=== PATIENT | male | born 1990 | race American Indian/Alaskan Native ===

== ENCOUNTER 2019-12-17 18:39 | Emergency (ER) | payer MEDICARE ==
[2019-12-17] MEDS ORDERED: HALOPERIDOL LACTATE 5 MG/1 ML INJ IM ONE (19:06)
[2019-12-17] MEDS ORDERED: LORazepam 2 MG/ML VIAL IM ONE (19:15)
[2019-12-17] MEDS ORDERED: diphenhydrAMINE 50 MG/ML VIAL IM PRN (19:30)
[2019-12-17] MEDS ORDERED: LORazepam 2 MG/ML VIAL IM PRN (19:30)
[2019-12-17] MEDS ORDERED: HALOPERIDOL LACTATE 5 MG/1 ML INJ IM PRN (19:30)
--- NOTE | 2019-12-17 19:35 | Emergency Department Report ---
HPI - General Chief Complaint: Psych Time Seen by Provider: 12/17/19 19:21 - HPI HPI: Room 15 The patient is an adult male present with a chief complaint of bizarre behavior. Patient was brought in by EMS after he was reported to have been walking naked down old [employer]. The patient was yelling out and speaking in third person. Patient was very belligerent upon arrival to the ED. Patient was administered Ativan 2 mg IM and Haldol 5 mg IM upon arrival and is now calm. Patient does not answer verbally but denies suicidal or homicidal ideation by shaking his head. Patient denies auditory hallucinations ED Past Medical Hx - Past Medical History Previous Medical History?: No - Surgical History Past Surgical History?: No - Family History Family history: no significant - Social History Smoking Status: Unknown if ever smoked Substance Use Type: None (Unknown) ED Review of Systems ROS: Stated complaint: EVALUATION Other details as noted in HPI Constitutional: no symptoms reported Respiratory: no symptoms reported Endocrine: no symptoms reported Psychiatric: denies: auditory hallucinations, homicidal thoughts, suicidal thoughts Physical Exam - Physical Exam Vital Signs: Vital Signs 12/17/19 18:56 Pulse Rate 88 Respiratory 18 Rate Blood Pressure 120/80 O2 Sat by Pulse 98 Oximetry Physical Exam: GENERAL: The patient is well-developed well-nourished male lying on mat not appearing to be in acute distress. [] HEENT: Normocephalic. Atraumatic. Extraocular motions are intact. Patient has moist mucous membranes. NECK: Supple. Trachea midline CHEST/LUNGS: Clear to auscultation. There is no respiratory distress noted. HEART/CARDIOVASCULAR: Regular. There is no tachycardia. There is no gallop rub or murmur. ABDOMEN: Abdomen is soft, nontender. Patient has normal bowel sounds. There is no abdominal distention. SKIN: There is no rash. There is no edema. There is no diaphoresis. NEURO: The patient is awake and alert. The patient is cooperative but does not answer questions verbally. The patient has normal speech (when patient was yelling out upon arrival) MUSCULOSKELETAL: There is no evidence of acute injury. ED Course Vital Signs 12/17/19 18:56 Pulse Rate 88 Respiratory 18 Rate Blood Pressure 120/80 O2 Sat by Pulse 98 Oximetry ED Medical Decision Making - Lab Data Result diagrams: 12/17/19 21:05 12/17/19 21:05 - Differential Diagnosis Psychosis NOS, schizophrenia, substance abuse Critical care attestation.: If time is entered above; I have spent that time in minutes in the direct care of this critically ill patient, excluding procedure time. ED Disposition Clinical Impression: Schizophrenia, acute Disposition: [id number]/TX-[id number] PSY HOSP/PSY UNIT Is pt being admited?: No Does the pt Need Aspirin: No Condition: Stable Referrals: TANNER ROLAND MD [Primary Care Provider] - 3-5 Days
[2019-12-17 21:19] LABS: Basophils % (Auto) 0.5 % (0.0-1.8); Eosinophils % (Auto) 0.4 % (0.0-4.3); Hematocrit 41.2 % (35.5-45.6); Lymphocytes # (Auto) 1.9 K/mm3 (1.2-5.4); Lymphocytes % (Auto) 20.3 % (13.4-35.0); Mean Corpuscular HGB Conc 34 % (32-34); Mean Corpuscular Volume 92 fl (84-94); Monocytes # (Auto) 1.3 K/mm3 (0.0-0.8); Monocytes % (Auto) 14.3 % (0.0-7.3); Platelet Count 170 K/mm3 (140-440); Red Blood Count 4.48 M/mm3 (3.65-5.03); Red Cell Distribution Width 14.3 % (13.2-15.2)
[2019-12-17 21:34] LABS: BUN/Creatinine Ratio 13; Blood Urea Nitrogen 12 mg/dL (9-20); Calcium 9.4 mg/dL (8.4-10.2); Hemolysis Index 17
--- NOTE | 2019-12-18 12:20 | Consultation ---
History of Present Illness - Reason for Consult Consult date: 12/18/19 Reason for consult: MHE Requesting physician: MECHE NICHOLS - History of Present Psychiatric Illness Per ED Provider: The patient is an adult male present with a chief complaint of bizarre behavior. Patient was brought in by EMS after he was reported to have b een walking naked [place] [address] [facility]. The patient was yelling out and speaking in third person. Patient was very belligerent upon arrival to the ED. Patient was administered Ativan 2 mg IM and Haldol 5 mg IM upon arrival and is now calm. Patient does not answer verbally but denies suicidal or homicidal ideation by shaking his head. Patient denies auditory hallucinations PSYCH HPI Patient is a 29 year old single, unemployed Male who curratrium healthty resides with brother with past psychiatric history of Schizophrenia who presented to the ED by EMS for wandering naked. Patient reports his real name as Valentino Boone, says he is 29 and of 1990. He reports hearing voices of facundo within him and in his jehovah's witness heaven, He admits to walking nakedly, says he was on his way to [place] doing the [employer] walk. He endorses hearing voices of the father telling him to lie to me, that he had made a prayer this morning telling father he would lie to me. Patient says he spiritually sees a ring in hi sleft hand, and he is to an una. He reports living with brother PAST PSYCHIATRIC HISTORY Diagnoses: Schizophrenia Suicide attempts or Self-harm behavior: unknown Prior psychiatric hospitalizations: Yes Substance Abuse history:unknown Previous psychiatric medications tried: Yes Outpatient treatment: unknown PAST MEDICAL HISTORY: Family Psychiatric History: None reported or documented SOCIAL HISTORY Marital Status: SIngle Living Arrangements: with brother Employment Status: unemployed Access to guns/weapons: unknown Education: unknown History of Abuse: unknown Legal History:unknown REVIEW OF SYSTEMS ROS cannot be reliably obtained from the patient due to his confusion MENTAL STATUS EXAMINATION General Appearance and Behavior: Age appropriate, poorgood hygiene, wearing lori ropriate clothes, lying in bed, poor eye contact, cooperative with questioning. Cooperation:, Isolative, Hostile and Guarded Psychomotor Behavior: psychomotor retardation Mood: good Affect and affective range: flat Thought Process: Fragmented and Loose associations Thought Content: Obsessions, Flight of ideas, Illogical, Grandiose, Hallucinations including auditory, Speech: Normal volume, Regular rate and rhythm Intellectual Functioning: Fair Suicidal Ideation: unknown Homicidal Ideation: unknown Impulse Control: Impaired Insight and Judgment: Impaired Memory: impaired Attention: Divided attention impaired Orientation: Alert, oriented Assessment and Plan - Psychiatric problem (1) Schizophrenia, acute Current Visit: Yes Status: Acute Treatment Plan MEDICATIONS: Meds started Risks, benefits and alternatives of medications discussed with the patient, questions answered and consent obtained from patient. PSYCHOTHERAPY: Supportive psychotherapy provided MEDICAL: Per primary team DELIRIUM PRECAUTIONS: Please re-orient patient frequently, keep lights on during the day, and minimize benzodiazepines and opiates as these medications could worsen patient's confusion. 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 Please contact with any questions and/or concerns. Medications and Allergies Allergies Allergy/AdvReac Type Severity Reaction Status Date / Time Unable to Assess Allergy Unverified 12/17/19 19:01 Active Meds: Active Medications Diphenhydramine HCl (Benadryl) 50 mg IM Q6H PRN PRN Reason: Agitation Haloperidol Lactate (Haldol) 10 mg IM Q8H PRN PRN Reason: Agitation Lorazepam (Ativan) 2 mg IM Q8H PRN PRN Reason: Agitation Mental Status Exam - Vital signs Last Vital Signs Temp 97.8 F 12/18/19 09:04 Pulse 90 12/18/19 09:04 Resp 18 12/18/19 09:04 BP 117/78 12/18/19 09:04 Pulse Ox 97 12/18/19 09:04 Results Result Diagrams: 12/17/19 21:05 12/17/19 21:05 Abnormal lab results 12/17/19 12/17/19 12/17/19 Range/Units 21:05 21:05 21:05 [place] % (Auto) 14.3 H (0.0-7.3) % [place] # 1.3 H (0.0-0.8) K/mm3 Salicylates < 0.3 L (2.8-20.0) mg/dL Acetaminophen 5.0 L (10.0-30.0) ug/mL All other labs normal. Assessment and Plan - Psychiatric problem (1) Schizophrenia, acute Current Visit: Yes Status: Acute
[2019-12-18] MEDS ORDERED: HALOPERIDOL 2 MG TAB PO SCH (13:00)
[2019-12-18 13:13] LABS: Amphetamine Screen,Urine Negative; Bacteria,Urine 1+ /HPF (Negative); Benzodiazepines Screen,Urine Negative; Bilirubin,Urine NEG (Negative); Blood,Urine NEG (Negative); Cannabinoid Screen,Urine Negative; Cocaine Screen,Urine Negative; Color,Urine Yellow (Yellow); Methadone Screen,Urine Negative; Mucus,Urine 2+ /HPF; Opiate Screen,Urine Negative; Protein,Urine <15 mg/dL mg/dL (Negative); Urobilinogen,Urine < 2.0 mg/dL (<2.0)
[2019-12-18 20:51] VITALS: BP 117/56
== END 2019-12-18 20:44 ==
LOC: ED 18:39 → EDBD 18:39 → ED 12-18 20:44
DX: F25.9 Schizoaffective disorder, unspecified (principal)
CPT/HCPCS: 36415; 80048; 80307; 81001; 85025; 96372; 99285; J1630; J2060; 80320; G0480

== ENCOUNTER 2021-08-07 03:10 | Emergency (ER) | payer MEDICARE ==
[2021-08-07 04:32] LABS: Basophils % (Auto) 0.6 % (0.0-1.8); Eosinophils # (Auto) 0.1 K/mm3 (0.0-0.4); Eosinophils % (Auto) 1.3 % (0.0-4.3); Hematocrit 41.8 % (35.5-45.6); Lymphocytes # (Auto) 2.3 K/mm3 (1.2-5.4); Lymphocytes % (Auto) 42.8 % (13.4-35.0); Mean Corpuscular HGB Conc 34 % (32-34); Mean Corpuscular Volume 90 fl (84-94); Monocytes # (Auto) 0.5 K/mm3 (0.0-0.8); Monocytes % (Auto) 8.6 % (0.0-7.3); Platelet Count 180 K/mm3 (140-440); Red Blood Count 4.63 M/mm3 (3.65-5.03)
[2021-08-07 04:49] LABS: BUN/Creatinine Ratio 5; Blood Urea Nitrogen 5 mg/dL (9-20); Calcium 9.1 mg/dL (8.4-10.2); Hemolysis Index 6
[2021-08-07 05:53] LABS: Bilirubin,Urine NEG (Negative); Blood,Urine NEG (Negative); Color,Urine Straw (Yellow); Mucus,Urine FEW /HPF; Protein,Urine <15 mg/dL mg/dL (Negative); RBC,Urine < 1.0 /HPF (0.0-6.0); Urobilinogen,Urine < 2.0 mg/dL (<2.0)
[2021-08-07 06:01] LABS: Amphetamine Screen,Urine PRESUMPTIVE NEGATIVE; Benzodiazepines Screen,Urine PRESUMPTIVE NEGATIVE; Cannabinoid Screen,Urine PRESUMPTIVE NEGATIVE; Cocaine Screen,Urine PRESUMPTIVE NEGATIVE; Methadone Screen,Urine PRESUMPTIVE NEGATIVE; Opiate Screen,Urine PRESUMPTIVE NEGATIVE
--- NOTE | 2021-08-07 10:40 | Emergency Department Report ---
ED General Adult HPI - General Chief complaint: Psych Stated complaint: MH EVAL/HALUCINATIONS Time Seen by Provider: 08/07/21 07:38 Source: patient, RN notes reviewed Mode of arrival: Stretcher Limitations: No Limitations - History of Present Illness Initial comments: This is a pleasant and cooperative 30-year-old gentleman, presenting to the ER today with a complaint of painless hallucinations. He is not homicidal or suicidal, denies physical pain, overdose, access to guns or firearms, he denies cough and urinary symptoms. He follows at [facility], and is typically maintained on haloperidol. -: Gradual Consistency: constant Improves with: none Worsens with: none Associated Symptoms: denies other symptoms - Related Data Previous Rx's Medication Instructions Recorded Last Taken Type haloperidoL [Haldol] 5 mg PO BID 30 Days #60 08/07/21 Unknown Rx Allergies Allergy/AdvReac Type Severity Reaction Status Date / Time No Known Allergies Allergy Unverified 12/18/19 13:19 ED Review of Systems ROS: Stated complaint: MH EVAL/HALUCINATIONS Other details as noted in HPI Comment: All other systems reviewed and negative Psychiatric: auditory hallucinations. denies: homicidal thoughts, suicidal thoughts ED Past Medical Hx - Past Medical History Previous Medical History?: Yes Hx Seizures: Yes (as a child; more than 15 years ago) Hx Psychiatric Treatment: Yes (SCHIZOPHRENIA) - Surgical History Past Surgical History?: No - Social History Smoking Status: Never Smoker Substance Use Type: None - Medications Home Medications: Home Medications Medication Instructions Recorded Confirmed Last Taken Type haloperidoL [Haldol] 5 mg PO BID 30 Days #60 08/07/21 Unknown Rx ED Physical Exam - General Limitations: No Limitations General appearance: alert, in no apparent distress - Head Head exam: Present: atraumatic, normocephalic - Eye Eye exam: Present: normal appearance, EOMI. Absent: nystagmus - ENT ENT exam: Present: normal exam, normal orophraynx, mucous membranes moist, normal external ear exam - Neck Neck exam: Present: normal inspection, full ROM. Absent: tenderness, meningismus - Respiratory Respiratory exam: Present: normal lung sounds bilaterally. Absent: respiratory distress, wheezes, rales, rhonchi, stridor, decreased breath sounds - Cardiovascular Cardiovascular Exam: Present: regular rate, normal rhythm, normal heart sounds. Absent: bradycardia, tachycardia, irregular rhythm, systolic murmur, diastolic murmur, rubs, gallop - GI/Abdominal GI/Abdominal exam: Present: soft. Absent: distended, tenderness, guarding, rebound, rigid, pulsatile mass - Rectal Rectal exam: Present: deferred - Extremities Exam Extremities exam: Present: normal inspection, full ROM, other (2+ pulses noted in the bilateral upper and lower extremities. There is no palpable cord. negative Homans sign. Muscular compartments are soft. The pelvis is stable.). Absent: pedal edema, calf tenderness - Back Exam Back exam: Present: normal inspection, full ROM. Absent: tenderness, CVA ten derness (R), CVA tenderness (L), paraspinal tenderness, vertebral tenderness - Neurological Exam Neurological exam: Present: alert, oriented X3, normal gait, other (No facial droop. Tongue midline. Extraocular movements intact bilaterally. Facial sensation intact to light touch in V1, V2, V3 distribution bilaterally. 5 and a 5 strength in 4 extremities. Sensation intact to light touch in 4 extremities.). Absent: motor sensory deficit - Psychiatric Psychiatric exam: Present: flat affect. Absent: homicidal ideation, suicidal ideation - Skin Skin exam: Present: warm, dry, intact, normal color. Absent: rash ED Course Vital Signs 08/07/21 08/07/21 08/07/21 03:34 03:43 12:18 Temperature 98 F 98.2 F Pulse Rate 60 68 Respiratory 18 16 Rate Blood Pressure 122/90 Blood Pressure 118/70 [Right] O2 Sat by Pulse 100 100 99 Oximetry ED Medical Decision Making - Lab Data Result diagrams: 08/07/21 04:11 08/07/21 04:11 Vital Signs 08/07/21 08/07/21 03:34 03:43 Temperature 98 F Pulse Rate 60 Respiratory 18 Rate Blood Pressure 122/90 O2 Sat by Pulse 100 100 Oximetry Lab Results 08/07/21 08/07/21 08/07/21 Range/Units 04:11 04:11 04:11 WBC (4.5-11.0) K/mm3 RBC (3.65-5.03) M/mm3 Hgb (11.8-15.2) gm/dl Hct (35.5-45.6) % MCV (84-94) fl MCH (28-32) pg MCHC (32-34) % RDW (13.2-15.2) % Plt Count (140-440) K/mm3 Lymph % (Auto) (13.4-35.0) % [place] % (Auto) (0.0-7.3) % Eos % (Auto) (0.0-4.3) % Baso % (Auto) (0.0-1.8) % Lymph # (Auto) (1.2-5.4) K/mm3 [place] # (Auto) (0.0-0.8) K/mm3 Eos # (Auto) (0.0-0.4) K/mm3 Baso # (Auto) (0.0-0.1) K/mm3 Seg Neutrophils % (40.0-70.0) % Seg Neutrophils # (1.8-7.7) K/mm3 Sodium 140 (137-145) mmol/L Potassium 4.2 (3.6-5.0) mmol/L Chloride 104.6 (98-107) mmol/L Carbon Dioxide 28 (22-30) mmol/L Anion Gap 12 mmol/L BUN 5 L (9-20) mg/dL Creatinine 1.0 (0.8-1.3) mg/dL Estimated GFR > 60 ml/min BUN/Creatinine Ratio 5 % Glucose 91 (75-100) mg/dL Calcium 9.1 (8.4-10.2) mg/dL Urine Color (Yellow) Urine Turbidity (Clear) Urine pH (5.0-7.0) Ur Specific [place] (1.003-1.030) Urine Protein (Negative) mg/dL Urine Glucose (UA) (Negative) mg/dL Urine Ketones (Negative) mg/dL Urine Blood (Negative) Urine Nitrite (Negative) Urine Bilirubin (Negative) Urine Urobilinogen (<2.0) mg/dL Ur Leukocyte Esterase (Negative) Urine WBC (Auto) (0.0-6.0) /HPF Urine RBC (Auto) (0.0-6.0) /HPF Urine Mucus /HPF Salicylates < 0.3 L (2.8-20.0) mg/dL Urine Opiates Screen Urine Methadone Screen Acetaminophen 5.0 L (10.0-30.0) ug/mL Ur Barbiturates Screen Ur Phencyclidine Scrn Ur Amphetamines Screen U Benzodiazepines Scrn Urine Cocaine Screen U Marijuana (THC) Screen Drugs of Abuse Note Plasma/Serum Alcohol (0-0.07) % 08/07/21 08/07/21 08/07/21 Range/Units 04:11 04:11 04:49 WBC 5.4 (4.5-11.0) K/mm3 RBC 4.63 (3.65-5.03) M/mm3 Hgb 14.0 (11.8-15.2) gm/dl Hct 41.8 (35.5-45.6) % MCV 90 (84-94) fl MCH 30 (28-32) pg MCHC 34 (32-34) % RDW 14.0 (13.2-15.2) % Plt Count 180 (140-440) K/mm3 Lymph % (Auto) 42.8 H (13.4-35.0) % [place] % (Auto) 8.6 H (0.0-7.3) % Eos % (Auto) 1.3 (0.0-4.3) % Baso % (Auto) 0.6 (0.0-1.8) % Lymph # (Auto) 2.3 (1.2-5.4) K/mm3 [place] # (Auto) 0.5 (0.0-0.8) K/mm3 Eos # (Auto) 0.1 (0.0-0.4) K/mm3 Baso # (Auto) 0.0 (0.0-0.1) K/mm3 Seg Neutrophils % 46.7 (40.0-70.0) % Seg Neutrophils # 2.5 (1.8-7.7) K/mm3 Sodium (137-145) mmol/L Potassium (3.6-5.0) mmol/L Chloride (98-107) mmol/L Carbon Dioxide (22-30) mmol/L Anion Gap mmol/L BUN (9-20) mg/dL Creatinine (0.8-1.3) mg/dL Estimated GFR ml/min BUN/Creatinine Ratio % Glucose (75-100) mg/dL Calcium (8.4-10.2) mg/dL Urine Color Straw (Yellow) Urine Turbidity Clear (Clear) Urine pH 6.0 (5.0-7.0) Ur Specific [place] 1.008 (1.003-1.030) Urine Protein <15 mg/dl (Negative) mg/dL Urine Glucose (UA) Neg (Negative) mg/dL Urine Ketones Neg (Negative) mg/dL Urine Blood Neg (Negative) Urine Nitrite Neg (Negative) Urine Bilirubin Neg (Negative) Urine Urobilinogen < 2.0 (<2.0) mg/dL Ur Leukocyte Esterase Neg (Negative) Urine WBC (Auto) 1.0 (0.0-6.0) /HPF Urine RBC (Auto) < 1.0 (0.0-6.0) /HPF Urine Mucus Few /HPF Salicylates (2.8-20.0) mg/dL Urine Opiates Screen Urine Methadone Screen Acetaminophen (10.0-30.0) ug/mL Ur Barbiturates Screen Ur Phencyclidine Scrn Ur Amphetamines Screen U Benzodiazepines Scrn Urine Cocaine Screen U Marijuana (THC) Screen Drugs of Abuse Note Plasma/Serum Alcohol < 0.01 (0-0.07) % 08/07/21 Range/Units 04:49 WBC (4.5-11.0) K/mm3 RBC (3.65-5.03) M/mm3 Hgb (11.8-15.2) gm/dl Hct (35.5-45.6) % MCV (84-94) fl MCH (28-32) pg MCHC (32-34) % RDW (13.2-15.2) % Plt Count (140-440) K/mm3 Lymph % (Auto) (13.4-35.0) % [place] % (Auto) (0.0-7.3) % Eos % (Auto) (0.0-4.3) % Baso % (Auto) (0.0-1.8) % Lymph # (Auto) (1.2-5.4) K/mm3 [place] # (Auto) (0.0-0.8) K/mm3 Eos # (Auto) (0.0-0.4) K/mm3 Baso # (Auto) (0.0-0.1) K/mm3 Seg Neutrophils % (40.0-70.0) % Seg Neutrophils # (1.8-7.7) K/mm3 Sodium (137-145) mmol/L Potassium (3.6-5.0) mmol/L Chloride (98-107) mmol/L Carbon Dioxide (22-30) mmol/L Anion Gap mmol/L BUN (9-20) mg/dL Creatinine (0.8-1.3) mg/dL Estimated GFR ml/min BUN/Creatinine Ratio % Glucose (75-100) mg/dL Calcium (8.4-10.2) mg/dL Urine Color (Yellow) Urine Turbidity (Clear) Urine pH (5.0-7.0) Ur Specific [place] (1.003-1.030) Urine Protein (Negative) mg/dL Urine Glucose (UA) (Negative) mg/dL Urine Ketones (Negative) mg/dL Urine Blood (Negative) Urine Nitrite (Negative) Urine Bilirubin (Negative) Urine Urobilinogen (<2.0) mg/dL Ur Leukocyte Esterase (Negative) Urine WBC (Auto) (0.0-6.0) /HPF Urine RBC (Auto) (0.0-6.0) /HPF Urine Mucus /HPF Salicylates (2.8-20.0) mg/dL Urine Opiates Screen Presumptive negative Urine Methadone Screen Presumptive negative Acetaminophen (10.0-30.0) ug/mL Ur Barbiturates Screen Presumptive negative Ur Phencyclidine Scrn Presumptive negative Ur Amphetamines Screen Presumptive negative U Benzodiazepines Scrn Presumptive negative Urine Cocaine Screen Presumptive negative U Marijuana (THC) Screen Presumptive negative Drugs of Abuse Note Disclamer Plasma/Serum Alcohol (0-0.07) % - Medical Decision Making Differential diagnosis, including but not limited to: Schizophrenia, medical screening exam, behavioral health screening examination Assessment and plan: 30-year-old gentleman, who is awake, alert, oriented, cooperative, not aggressive, not homicidal, not suicidal, exhibiting decision- making capacity, not disorganized to the point where he is not able to care for himself, presenting with essentially painless hallucinations. In my opinion does not meet criteria for 1013 hold or involuntary confinement. Physical exam is benign and unremarkable. Laboratory studies are essentially nonactionable. Seen in conjunction with psychiatric nurse practitioner, awaiting their formal recommendations. Anticipate discharge with outpatient follow-up Critical care attestation.: If time is entered above; I have spent that time in minutes in the direct care of this critically ill patient, excluding procedure time. ED Disposition Clinical Impression: Schizophrenia, Encounter for behavioral health screening, Encounter for medical screening examination Disposition: HOME / SELF CARE / HOMELESS Is pt being admited?: No Does the pt Need Aspirin: No Condition: Good Instructions: Schizophrenia Additional Instructions: Please continue your current outpatient medications. Please avoid consumption of alcohol, tobacco and smoke products. Please follow-up with an outpatient primary care doctor within the next month. Please follow-up with your outpatient psychiatrist within the next week. Please return to the emergency room right away with new pain, worsened pain, migration of pain, projectile vomiting, change in mental status, confusion, inability tolerate liquid feeds, new, worsened or different symptoms not present on the initial emergency room evaluation Please follow-up with outpatient resources that have been provided to the patient Prescriptions: haloperidoL [Haldol] 5 mg PO BID 30 Days #60 Referrals: MILTON SUAREZ MD [Primary Care Provider] - 3-5 Days [facility] [Outside] - 3-5 Days [facility] [Outside] - 3-5 Days
--- NOTE | 2021-08-07 10:56 | Consultation ---
History of Present Illness - Reason for Consult Consult date: 08/07/21 Reason for consult: mental health evaluation - History of Present Psychiatric Illness The patient is a 30 year old male with history of schizophrenia. In my encounter with the patient, he is calm. The patient states " The holy spirit said to call 911 because I have trauma." The patient reports getting his monthly Haldol Dec form [facility] outpatient stating "it's not 28 days yet." He reports an upcoming appointment on 08/15 at [facility] out-[facility]. The patient denies any current suicidal/homicidal ideation, admits to having auditory hallucinations. PAST PSYCHIATRIC HISTORY: Diagnose:Schizophrenia Suicide attempts or Self-harm behavior: Yes Prior psychiatric hospitalizations: Yes Substance Abuse history: Denies Previous psychiatric medications tried: Haldol dec, Cogentin Outpatient treatment: [facility] PAST MEDICAL HISTORY: unknown Family Psychiatric History: None reported or documented SOCIAL HISTORY Marital Status: Single Living Arrangements: Lives with brother Employment Status: Unknown Access to guns/weapons: Denies Education:some college History of Abuse: Denies Legal History: Denies REVIEW OF SYSTEMS Constitutional: Negative for weight loss ENT: Negative for stridor Respiratory: Negative for cough or hemoptysis All other systems reviewed and are negative MENTAL STATUS EXAMINATION General Appearance and Behavior: Age appropriate, good hygiene, wearing appropriate clothes. cooperative Cooperation: Cooperative Psychomotor Behavior: Psychomotor normal Mood:OK Affect and affective range: Congruent Thought Process: Goal directed Thought Content: Reality oriented Speech: Normal Suicidal Ideation: Denies Homicidal Ideation: Denies Hallucinations: Yes- auditory Delusions: None elicited Impulse Control: Normal Insight and Judgment: Limited insight and judgment Memory: Limited Attention: attentive Orientation: a/o x 3 Assessment (1) Schizophrenia Treatment Plan DC 1013 Haldol 5mg po BID Sitter: per primary Medical: per primary Disposition: Do not recommend acute psychiatric inpatient treatment. [facility] will provide patient with psychiatric outpatient resources. Will sign off. Thanks Case staffed with Dr. Parson Medications and Allergies Medications and Allergies Allergies Allergy/AdvReac Type Severity Reaction Status Date / Time No Known Allergies Allergy Unverified 12/18/19 13:19 Home Medications Medication Instructions Recorded Confirmed Last Taken Type haloperidoL [Haldol] 5 mg PO BID 30 Days #60 08/07/21 Unknown Rx Mental Status Exam - Vital signs Last Vital Signs Temp 98 F 08/07/21 03:34 Pulse 60 08/07/21 03:34 Resp 18 08/07/21 03:34 BP 122/90 08/07/21 03:34 Pulse Ox 100 08/07/21 03:43 Results Result Diagrams: 08/07/21 04:11 08/07/21 04:11 Abnormal lab results 08/07/21 08/07/21 08/07/21 Range/Units 04:11 04:11 04:11 Lymph % (Auto) (13.4-35.0) % [place] % (Auto) (0.0-7.3) % BUN 5 L (9-20) mg/dL Salicylates < 0.3 L (2.8-20.0) mg/dL Acetaminophen 5.0 L (10.0-30.0) ug/mL 08/07/21 Range/Units 04:11 Lymph % (Auto) 42.8 H (13.4-35.0) % [place] % (Auto) 8.6 H (0.0-7.3) % BUN (9-20) mg/dL Salicylates (2.8-20.0) mg/dL Acetaminophen (10.0-30.0) ug/mL All other labs normal.
--- NOTE | 2021-08-07 11:37 | Event Note ---
Date: 08/07/21 vss, nodistress , no events overnight medically cleared assesssed by [facility] awaiting discharge
[2021-08-07 12:19] VITALS: BP 118/70
== END 2021-08-07 12:19 | disposition home or self-care (01) ==
LOC: ED 03:10
DX: F20.9 Schizophrenia, unspecified (principal); Z13.30 Encounter for screening examination for mental health and behavioral disorders, unspecified; Z79.899 Other long term (current) drug therapy
CPT/HCPCS: 36415; 80048; 80307; 80320; 81001; 85025; 99284; G0480